=== PATIENT | female | born 1995 | race Caucasian/White ===

== ENCOUNTER 2023-12-24 22:54 | Emergency (ER) | payer SELFPAY ==
[~2023-12-24] VITALS: Ht 162.6 cm; Wt 91.0 kg
[~2023-12-24 22:54] MED LIST: ADDERALL10 MG PO; AMOXICILLIN500 M2 PO; AMOXICILLIN500 MG PO; BACTRIM DS1 TAB PO; CEPHALEXIN500 MG PO; EFFEXOR XR75 MG PO; KEFLEX500 M1 PO; LIDOCAINE HCL VIS2 % TOP; LOMOTIL2.5 MG PO; LORAZEPAM0.5 MG PO; MOTRIN800 MG PO; NAPROXEN500 MG PO; PHENERGAN25 MG/TAB PO; PRENATAL1 TA1 PO; PROBIOTI3; PROBIOTIC1 TAB PO; PYRIDIUM200 MG PO; SEROQUEL100 MG PO; TRAZODONE100 MG PO; VOLTAREN - GENE75 MG PO; [UNRECOGNIZED DRUG - OTHER]; [UNRECOGNIZED DRUG - OTHER] PO
[2023-12-24] MEDS ORDERED: TRAZODONE50 MG PO (23:02)
[2023-12-24] MEDS ORDERED: SEROQUEL25 MG PO (23:03)
[2023-12-24] MEDS ORDERED: CLINDAMYCIN HCL 150 MG CAP PO ONE (23:10)
[2023-12-24] MEDS ORDERED: DICLOFENAC SODIUM 75 MG/TAB PO ONE (23:10)
[2023-12-24] MEDS ORDERED: Acetaminophen 300 MG/Codeine 30 MG/COMBO PO ONE (23:10)
[2023-12-24] MEDS ORDERED: TYLENOL # 31 TA1 PO (23:14)
[2023-12-24] MEDS ORDERED: CLINDAMYCIN300 M1 PO (23:14)
[2023-12-24] MEDS ORDERED: NAPROXEN375 MG PO (23:14)
[2023-12-24 23:59] VITALS: BP 123/83
== END 2023-12-25 | disposition home or self-care (01) | DRG 159 ==
LOC: ED 22:54
DX: K02.9 Dental caries, unspecified (principal); K04.7 Periapical abscess without sinus; F31.9 Bipolar disorder, unspecified; F41.9 Anxiety disorder, unspecified